=== PATIENT | male | born 1980 | race Two or more races ===

== ENCOUNTER 2017-05-02 12:31 | Emergency (ER) | payer OTHER ==
[2017-05-02 12:40] VITALS: O2SAT 98
--- NOTE | 2017-05-02 13:21 | ED PDOC ---
HPI: Psych/Substance Abuse Time Seen by Provider: 05/02/17 12:48 Chief Complaint (Nursing): Psychiatric Evaluation History Per: Patient, Other (Per police office, patient has absconded from court -mandated shelter one week ago. He was found by police and brought to the ER for medical and psych clearance. Patient denies complaints. He denies alcohol use or drug use.) Past Medical History Reviewed: Historical Data, Nursing Documentation, Vital Signs Vital Signs: Last Vital Signs Temp 98.4 F 05/02/17 12:33 Pulse 97 H 05/02/17 12:33 Resp 16 05/02/17 12:33 BP 144/92 H 05/02/17 12:33 Pulse Ox 98 05/02/17 12:33 - Medical History Other PMH: bipolar disorder - Surgical History Surgical History: No Surg Hx - Family History Family History: States: No Known Family Hx - Living Arrangements Living Arrangements: Long Term/Assist Lvng - Allergies Allergies/Adverse Reactions: Allergies Allergy/AdvReac Type Severity Reaction Status Date / Time No Known Allergies Allergy Verified 05/02/17 12:32 Review of Systems ROS Statement: Except As Marked, All Systems Reviewed And Found Negative Physical Exam - Reviewed Nursing Documentation Reviewed: Yes Vital Signs Reviewed: Yes - Physical Exam Appears: Positive for: Well, Non-toxic, No Acute Distress Head Exam: Positive for: ATRAUMATIC, NORMAL INSPECTION, NORMOCEPHALIC Skin: Positive for: Normal Color, Warm, DRY Eye Exam: Positive for: Normal appearance ENT: Positive for: Normal ENT Inspection Neck: Positive for: Normal Cardiovascular/Chest: Positive for: Regular Rate, Rhythm Respiratory: Positive for: CNT, Normal Breath Sounds Gastrointestinal/Abdominal: Positive for: Normal Exam, Bowel Sounds, Soft Back: Positive for: Normal Inspection Extremity: Positive for: Normal ROM Neurologic/Psych: Positive for: Alert, Oriented - ECG O2 Sat by Pulse Oximetry: 98 Medical Decision Making Medical Decision Making: Patient does not have physical complaints. The physical exam is without significant findings. He is to be transferred back to the shelter as court mandate. Patient was seen by the laundry worker and cleared by Dr. Mays from psych. Disposition - Clinical Impression Clinical Impression: Bipolar affective disorder - Patient ED Disposition Is Patient to be Admitted: No Doctor Will See Patient In The: Office Counseled Patient/Family Regarding: Diagnosis, Need For Followup - Disposition Disposition: Other Institution Disposition Time: 13:00 Condition: STABLE Forms: [facility] ([facility]) - POA Present On Arrival: None
[2017-05-02 14:53] VITALS: BP 128/78; PULSE 78; RESP 17; TEMP 97.6
== END 2017-05-02 14:54 | disposition home or self-care (01) ==
LOC: H.ER 12:31
DX: F31.9 Bipolar disorder, unspecified (principal)